=== PATIENT | female | born 1970 | race Native Hawaiian/Other Pacific Islander ===

== ENCOUNTER 2019-10-13 14:25 | Outpatient (CLI) | payer OTHER ==
[2019-10-13 14:49] LABS: PLATELET COUNT 213 K/uL (152-353)
[2019-10-13 14:53] LABS: POTASSIUM 4.3 mmol/L (3.6-5.2)
== END 2019-10-13 23:04 | disposition home or self-care (01) ==
LOC: LAB 14:25
PROVIDERS: Physician Assistant
DX: E66.9 Obesity, unspecified (principal); Z87.898 Personal history of other specified conditions; E78.5 Hyperlipidemia, unspecified
CPT/HCPCS: 80053; 80061; 83036; 84443; 85027

== ENCOUNTER 2019-10-26 14:34 | Outpatient (CLI) | payer OTHER | END 2019-10-26 21:54 | disposition home or self-care (01) | LOC: MAMMO 14:34 | DX: Z12.31 Encounter for screening mammogram for malignant neoplasm of breast (principal) ==

== ENCOUNTER 2019-12-07 12:55 | Outpatient (CLI) | payer OTHER | END 2019-12-07 21:11 | disposition home or self-care (01) | LOC: RAD 12:55 | DX: M79.672 Pain in left foot (principal); R22.42 Localized swelling, mass and lump, left lower limb ==